=== PATIENT | female | born 1985 | race Caucasian/White ===

== ENCOUNTER 2022-08-17 07:50 | Emergency (ER) | payer BC, SELFPAY ==
[2022-08-17 07:52] VITALS: BP 120/81; PULSE 80; RESP 18; TEMP 36.6; O2SAT 97; BMI 20.7
[2022-08-17 09:20] LABS: COVID-19 Test Negative (Negative); IDNOW Serial# 16C4AD1C; IDNOW Serial# BCCEAD1C; Influenza A Negative (Negative); Influenza B2 Negative (Negative)
--- NOTE | 2022-08-17 10:10 | PC.NURSE ---
PT REQUESTING DISCHARGE IN ORDER TO ATTEND PCP APPT. DECLINING LABWORK AT THIS TIME.
--- NOTE | 2022-08-17 10:14 | ED_ITS ---
[facility] - General Adult General Chief complaint: General Medical Stated complaint: flu symptons fever Time Seen by Provider: 08/17/22 08:00 Source: patient Mode of arrival: ambulatory History of Present Illness [facility] narrative: 37-year-old female who presents with ?weeks? of fevers (that she has not measured), chills, body aches and has positive past history of 1 kidney and is concerned about any damage that may be inadvertently occurring to that kidney. She denies any urinary symptoms and does have complaints of sore throat. Patient was started on Latuda last week and states that she did get prior lab work. Related Data Allergies Allergy/AdvReac Type Severity Reaction Status Date / Time lamotrigine [From Lamictal] Allergy Rash Verified 08/17/22 07:56 Review of Systems Review of Systems: Pertinent positives and negatives as stated in [facility] Past Medical History Source: nursing notes reviewed Social History Social History Advance Directives: No Physical Exam ED Vital Signs: Vital Signs - 24 hr 08/17/22 07:52 08/17/22 10:27 Temperature 97.8 F 98.0 F Pulse Rate 80 79 Respiratory Rate 18 16 Blood Pressure 120/81 122/66 Pulse Oximetry 97 100 Oxygen Delivery Method Room Air Room Air BMI result Body Mass Index 20.7 VITAL SIGNS: Reviewed. GENERAL: Well developed, well nourished, in no acute distress. HEAD: Normocephalic/atraumatic EYES: PERRLA, EOMI EARS: Ext canals without abnormality, TMs non-bulging and non-erythematous NOSE: Nares patent bilateral OROPHARYNX: no oral lesions noted, posterior pharynx clear and non-erythematous without noted tonsillar enlargement/erythema/exudates NECK: Supple, no adenopathy LUNGS: Normal breath sounds, no tachypnea/wheeze/rhonchi/rales. SpO2<97> CARDIOVASCULAR: Regular rate and rhythm without noted murmurs ABDOMEN: Soft, non-tender, non-distended with bowel sounds. MUSCULOSKELETAL: No tenderness, deformities, or effusions noted on gross inspection. EXTREMITIES: No cyanosis, clubbing or edema. SKIN: Inspection of the skin reveals no rashes NEUROLOGIC: Alert and oriented x 4. Strength and sensation to light touch were grossly intact x 4. Medications Administered Discontinued Medications Generic Name Dose Route Start Last Admin Trade Name Khadra PRN Reason Stop Dose Admin Acetaminophen 975 mg 08/17/22 10:17 08/17/22 10:34 Acetaminophen 325 Mg Tablet PO 08/17/22 10:18 975 mg ONCE ONE Administration Ibuprofen 400 mg 08/17/22 10:17 08/17/22 10:34 Ibuprofen 400 Mg Tablet PO 08/17/22 10:18 400 mg ONCE ONE Administration Medical Decision Making Medical Decision Making [facility] Narrative: 37-year-old female with presentation of viral-like symptoms and on my interpretation of the viral testing for COVID-19/influenza they are negative. Patient has a follow-up appointment with her primary care provider today and I was going to get additional lab work at patient's request and also because she is having the symptoms was going to include a mono screening, but nursing has informed me that patient is declining any lab work at this time and states that she will ?it's just follow-up with her primary care provider?. Urinalysis negative, patient has left. Differential Diagnosis Differential Diagnoses: The differential diagnosis associated with the presentation includes Please see the discussion above. Lab Data [facility] Lab Attestation statement: I reviewed the patient's lab results. Please see the discussion above Labs: Lab Results 08/17/22 08/17/22 08/17/22 Range/Units 08:45 08:45 10:12 Urine Color Straw Urine Appearance Clear Urine pH 6.0 (5.0-9.0) Ur Specific [place] 1.010 (1.005-1.025) Urine Protein Negative (Neg-Trace) mg/dL Urine Glucose (UA) Negative (Negative) mg/dL Urine Ketones Negative (Negative) mg/dL Urine Blood Negative (Negative) Urine Nitrite Negative (Negative) Ur Leukocyte Esterase Negative (Negative) Urine Test (NEGATIVE) COVID-19 (BAILEY) Negative (Negative) COVID-19 Clin Com See Note Influenza Type A (JULIAN) Negative (Negative) Influenza Type B (JULAIN) Negative (Negative) Influenza A & B Note See Note 08/17/22 Range/Units 10:12 Urine Color Urine Appearance Urine pH (5.0-9.0) Ur Specific [place] (1.005-1.025) Urine Protein (Neg-Trace) mg/dL Urine Glucose (UA) (Negative) mg/dL Urine Ketones (Negative) mg/dL Urine Blood (Negative) Urine Nitrite (Negative) Ur Leukocyte Esterase (Negative) Urine Test NEGATIVE (NEGATIVE) COVID-19 (BAILEY) (Negative) COVID-19 Clin Com Influenza Type A (JULIAN) (Negative) Influenza Type B (JULIAN) (Negative) Influenza A & B Note Discharge Plan Discharge Clinical Impression: Viral syndrome Patient Disposition: Home, Self-Care Instructions: Viral Syndrome (ED) Additional Instructions: 1. There is a possibility you may be feeling like this secondary to medication side effects, you have declined laboratory evaluation at this time. 2. I strongly encouraged follow-up with your primary care provider as scheduled for this morning. All of your vital signs were within normal limits with no evidence of fever or high heart rate. Return to the ER if you have any worsening of symptoms. Referrals: Chel Ayala RN [Emergency Nurse] - Interventions: ED Discharge Assessment Last Done: 08/17/22 10:53 Discharge Date/Time: 08/17/22 10:54
[2022-08-17 10:24] LABS: UPreg QC Valid YES; Urine Pregnancy NEGATIVE (NEGATIVE)
[2022-08-17 10:27] VITALS: BP 122/66; PULSE 79; RESP 16; TEMP 36.7; O2SAT 100
[2022-08-17 10:27] LABS: Appearance Urine Clear; Color Urine Straw; Glucose Urine UA Negative (Negative); Leukocyte Esterase Urine Negative (Negative); Nitrite Urine Negative (Negative); Urine Blood Negative (Negative); Urine Ketones Negative (Negative); Urine Protein Negative (Neg-Trace)
[2022-08-17] MEDS: Ibuprofen 400 MG TABLET PO (10:34)
[2022-08-17] MEDS: Acetaminophen 325 MG TABLET 975 MG PO (10:34)
== END 2022-08-17 10:54 | disposition home or self-care (01) ==
PROVIDERS: Emergency Provider Student in an Organized Health Care Education/Training Program; PCP Nurse Practitioner Adult Health
DX: B34.9 Viral infection, unspecified (principal); R50.9 Fever, unspecified; J02.9 Acute pharyngitis, unspecified; Z20.822 Contact with and (suspected) exposure to COVID-19
CPT/HCPCS: 81003; 81025; 87502; 87635; 99283